=== PATIENT | male | born 1965 | race Caucasian/White ===

== ENCOUNTER 2021-12-18 19:34 | Inpatient (IN) | payer OTHER ==
[~2021-12-18] VITALS: Ht 167.6 cm; Wt 65.4 kg
[2021-12-18] MEDS ORDERED: MAGNESIUM HYDROXIDE SUSPENSION 30 ML UDCUP PO PRN (21:00)
[2021-12-18] MEDS ORDERED: ONDANSETRON HCL 4 MG/2 ML VIAL IVP PRN (21:00)
[2021-12-18 21:04] LABS: COVID AG,FIA SOURCE NASOPHARYNGEAL
[2021-12-18 22:13] LABS: BASOPHILS % (AUTO) 0.6 % (0.0-2.0); EOSINOPHILS % (AUTO) 0.9 % (1.0-6.0); HEMATOCRIT 36.3 % (41-53); HEMOGLOBIN 12.4 g/dL (13.5-17.5); LYMPHOCYTES # (AUTO) 1.9 K/uL (1.0-4.8); LYMPHOCYTES % (AUTO) 28.9 % (22.0-44.0); MEAN CORPUSCULAR HEMOGLOBIN 30.3 pg (26.0-34.0); MEAN CORPUSCULAR HGB CONC 34.3 G/dL (31.0-37.0); MEAN CORPUSCULAR VOLUME 88 fL (80-100); MONOCYTES # (AUTO) 0.7 K/uL (0.1-1.0); MONOCYTES % (AUTO) 10.8 % (2.0-9.0); NEUTROPHILS # (AUTO) 3.8 K/uL (1.8-7.7); NEUTROPHILS % (AUTO) 58.8 % (40.0-70.0); PLATELET COUNT (AUTO) 282 K/uL (150-450); RED BLOOD CELL COUNT(AUTO) 4.11 MIL/uL (4.50-5.90); RED CELL DISTRIBUTION WIDTH 12.8 % (11.5-14.5)
[2021-12-18 22:21] LABS: ANION GAP 1 mmol/L (8-16); CALCIUM, TOTAL 9.1 mg/dL (8.8-10.5); CARBON DIOXIDE 33 mmol/L (22-29); CHLORIDE 107 mmol/L (98-107); CREATININE 0.89 mg/dL (0.60-1.30); GLOMERULAR FILTR. RATE CALC > 60 mL/min (>60); GLUCOSE,RANDOM 99 mg/dL (70-110); POTASSIUM 4.4 mmol/L (3.5-5.1); SODIUM SERUM 141 mmol/L (136-145); UREA NITROGEN, BLOOD 24 mg/dL (7-18)
[2021-12-18 22:29] LABS: ALANINE AMINOTRANSFERASE 16 U/L (12-78); ALBUMIN 3.6 g/dL (3.4-5.0); ALKALINE PHOSPHATASE 82 U/L (46-116); ASPARTATE AMINOTRANSFERASE 17 U/L (15-37); BILIRUBIN,TOTAL 0.3 mg/dL (0.1-1.0); TOTAL PROTEIN, SERUM 6.7 g/dL (6.4-8.2)
[2021-12-18 22:48] VITALS: BP 143/79
[2021-12-18] MEDS: ACETAMINOPHEN 325 MG TABLET PO PRN (23:45)
[2021-12-19] VITALS (7 sets, daily range): BP systolic 92–123; BP diastolic 51–74
[2021-12-19] MEDS: HEPARIN SODIUM,PORCINE 5,000 UNITS/ML VIAL SQ SCH ×5 (00:27→23:06)
[2021-12-19] MEDS: FAMOTIDINE 20 MG TABLET PO SCH (07:47)
[2021-12-19 08:53] LABS: AMPHET/METH SCREEN,URINE NEGATIVE (NEGATIVE); BARBITURATE SCREEN, URINE NEGATIVE (NEGATIVE); BENZODIAZEPINES SCREEN,URINE NEGATIVE (NEGATIVE); CANNABINOID SCREEN,URINE NEGATIVE (NEGATIVE); COCAINE SCREEN,URINE NEGATIVE (NEGATIVE); METHADONE SCREEN, URINE NEGATIVE (NEGATIVE); OPIATE SCREEN,URINE NEGATIVE (NEGATIVE)
[2021-12-19 08:54] LABS: PHENCYCLIDINE SCREEN,URINE NEGATIVE (NEGATIVE)
[2021-12-19] MEDS: ACETAMINOPHEN 325 MG TABLET PO PRN (22:10)
[2021-12-20 04:14] VITALS: BP 104/61
[2021-12-20 07:31] VITALS: BP 118/78
[2021-12-20] MEDS: HEPARIN SODIUM,PORCINE 5,000 UNITS/ML VIAL SQ SCH ×3 (08:00→23:13)
[2021-12-20] MEDS: FAMOTIDINE 20 MG TABLET PO SCH (08:42)
[2021-12-20 11:27] VITALS: BP 112/68
[2021-12-20] MEDS: OLANZapine 5 MG RAPDIS TABLET PO SCH ×2 (12:41→19:55)
[2021-12-20] MEDS: DIVALPROEX SODIUM 500 MG DR TABLET PO SCH ×2 (12:41→19:55)
[2021-12-20 15:34] VITALS: BP 108/76
[2021-12-20 20:13] VITALS: BP 120/83
[2021-12-21 00:25] VITALS: BP 99/54
[2021-12-21 04:39] VITALS: BP 97/57
[2021-12-21] MEDS: HEPARIN SODIUM,PORCINE 5,000 UNITS/ML VIAL SQ SCH ×3 (08:00→23:43)
[2021-12-21] MEDS: OLANZapine 5 MG RAPDIS TABLET PO SCH ×2 (08:04→20:26)
[2021-12-21] MEDS: DIVALPROEX SODIUM 500 MG DR TABLET PO SCH ×2 (08:05→20:26)
[2021-12-21] MEDS: FAMOTIDINE 20 MG TABLET PO SCH (08:05)
[2021-12-21 08:27] VITALS: BP 114/69
[2021-12-21 13:34] VITALS: BP 97/65
[2021-12-21 16:20] VITALS: BP 115/77
[2021-12-21 20:52] VITALS: BP 111/67
[2021-12-22] MEDS ORDERED: MELATONIN 3 MG TABLET PO SCH
[2021-12-22 05:07] VITALS: BP 103/59
[2021-12-22 07:32] VITALS: BP 107/70
[2021-12-22] MEDS: DIVALPROEX SODIUM 500 MG DR TABLET PO SCH (07:52)
[2021-12-22] MEDS: HEPARIN SODIUM,PORCINE 5,000 UNITS/ML VIAL SQ SCH ×3 (07:52→16:00)
[2021-12-22] MEDS: FAMOTIDINE 20 MG TABLET PO SCH (07:52)
[2021-12-22] MEDS: OLANZapine 5 MG RAPDIS TABLET PO SCH ×2 (07:52→21:07)
[2021-12-22] MEDS: DIVALPROEX SODIUM 125 MG DR CAPSULE PO SCH ×2 (12:17→21:07)
[2021-12-22 15:31] VITALS: BP 104/72
[2021-12-22 20:02] VITALS: BP 115/63
[2021-12-22] MEDS ORDERED: MELATONIN 3 MG TABLET PO PRN (21:15)
[2021-12-23 04:51] VITALS: BP 110/66
[2021-12-23] MEDS: HEPARIN SODIUM,PORCINE 5,000 UNITS/ML VIAL SQ SCH ×5 (08:00→23:36)
[2021-12-23 08:08] VITALS: BP 96/65
[2021-12-23] MEDS: FAMOTIDINE 20 MG TABLET PO SCH ×2 (08:17→09:00)
[2021-12-23] MEDS: OLANZapine 5 MG RAPDIS TABLET PO SCH ×3 (08:18→21:00)
[2021-12-23] MEDS: DIVALPROEX SODIUM 125 MG DR CAPSULE PO SCH ×3 (08:19→21:00)
[2021-12-23 15:37] VITALS: BP 109/69
[2021-12-23] MEDS ORDERED: DiphenhydrAMINE HCL 50 MG/ML VIAL IM ONE (16:15)
[2021-12-23] MEDS ORDERED: LORazepam 2 MG/ML VIAL IM ONE (16:15)
[2021-12-23] MEDS ORDERED: HALOPERIDOL LACTATE 5 MG/ML VIAL IM ONE (16:15)
[2021-12-23 20:48] VITALS: BP 109/58
[2021-12-24 05:24] VITALS: BP 110/70
[2021-12-24] MEDS: HEPARIN SODIUM,PORCINE 5,000 UNITS/ML VIAL SQ SCH ×2 (08:00→16:00)
[2021-12-24] MEDS: DIVALPROEX SODIUM 125 MG DR CAPSULE PO SCH ×2 (08:11→21:09)
[2021-12-24] MEDS: FAMOTIDINE 20 MG TABLET PO SCH (08:14)
[2021-12-24] MEDS: OLANZapine 5 MG RAPDIS TABLET PO SCH ×2 (08:14→21:09)
[2021-12-24 08:34] VITALS: BP 107/64
[2021-12-24] MEDS ORDERED: DiphenhydrAMINE HCL 50 MG/ML VIAL IM ONE (16:15)
[2021-12-24] MEDS ORDERED: LORazepam 2 MG/ML VIAL IM ONE (16:15)
[2021-12-24] MEDS ORDERED: HALOPERIDOL LACTATE 5 MG/ML VIAL IM ONE (16:15)
[2021-12-24 20:00] VITALS: BP 119/73
[2021-12-25 06:00] VITALS: BP 101/59
[2021-12-25 08:00] VITALS: BP 98/61
[2021-12-25] MEDS: HEPARIN SODIUM,PORCINE 5,000 UNITS/ML VIAL SQ SCH ×4 (08:00→23:08)
[2021-12-25] MEDS: DIVALPROEX SODIUM 125 MG DR CAPSULE PO SCH ×2 (09:21→20:24)
[2021-12-25] MEDS: OLANZapine 5 MG RAPDIS TABLET PO SCH ×2 (09:21→20:24)
[2021-12-25] MEDS: FAMOTIDINE 20 MG TABLET PO SCH (09:21)
[2021-12-25 16:43] VITALS: BP 106/61
[2021-12-25 19:42] VITALS: BP 114/64
[2021-12-26 04:21] VITALS: BP 106/65
[2021-12-26 07:39] VITALS: BP 102/63
[2021-12-26] MEDS: HEPARIN SODIUM,PORCINE 5,000 UNITS/ML VIAL SQ SCH ×3 (08:00→23:36)
[2021-12-26] MEDS: FAMOTIDINE 20 MG TABLET PO SCH (08:14)
[2021-12-26] MEDS: OLANZapine 5 MG RAPDIS TABLET PO SCH ×2 (08:15→20:44)
[2021-12-26] MEDS: DIVALPROEX SODIUM 125 MG DR CAPSULE PO SCH ×2 (08:15→20:44)
[2021-12-26 12:55] LABS: BASOPHILS % (AUTO) 0.6 % (0.0-2.0); EOSINOPHILS % (AUTO) 1.8 % (1.0-6.0); HEMATOCRIT 38.5 % (41-53); HEMOGLOBIN 13.2 g/dL (13.5-17.5); LYMPHOCYTES # (AUTO) 1.7 K/uL (1.0-4.8); LYMPHOCYTES % (AUTO) 29.6 % (22.0-44.0); MEAN CORPUSCULAR HGB CONC 34.2 G/dL (31.0-37.0); MEAN CORPUSCULAR VOLUME 88 fL (80-100); MONOCYTES # (AUTO) 0.6 K/uL (0.1-1.0); MONOCYTES % (AUTO) 10.1 % (2.0-9.0); NEUTROPHILS # (AUTO) 3.4 K/uL (1.8-7.7); NEUTROPHILS % (AUTO) 57.9 % (40.0-70.0); PLATELET COUNT (AUTO) 290 K/uL (150-450); RED BLOOD CELL COUNT(AUTO) 4.39 MIL/uL (4.50-5.90); RED CELL DISTRIBUTION WIDTH 12.9 % (11.5-14.5)
[2021-12-26 13:06] LABS: ANION GAP 9 mmol/L (8-16); CALCIUM, TOTAL 8.9 mg/dL (8.8-10.5); CARBON DIOXIDE 31 mmol/L (22-29); CHLORIDE 102 mmol/L (98-107); CREATININE 0.96 mg/dL (0.60-1.30); GLUCOSE,RANDOM 113 mg/dL (70-110); POTASSIUM 4.3 mmol/L (3.5-5.1); SODIUM SERUM 142 mmol/L (136-145); UREA NITROGEN, BLOOD 20 mg/dL (7-18)
[2021-12-26 13:09] LABS: GLOMERULAR FILTR. RATE CALC > 60 mL/min (>60)
[2021-12-26 16:32] VITALS: BP 108/64
[2021-12-26 20:01] VITALS: BP 112/72
[2021-12-27 05:26] VITALS: BP 101/55
[2021-12-27] MEDS: LEVOTHYROXINE SODIUM 50 MCG TABLET PO SCH (06:58)
[2021-12-27 08:00] VITALS: BP 112/57
[2021-12-27] MEDS: HEPARIN SODIUM,PORCINE 5,000 UNITS/ML VIAL SQ SCH ×2 (08:00→16:00)
[2021-12-27] MEDS: DIVALPROEX SODIUM 125 MG DR CAPSULE PO SCH ×2 (09:40→21:12)
[2021-12-27] MEDS: FAMOTIDINE 20 MG TABLET PO SCH (09:40)
[2021-12-27] MEDS: OLANZapine 5 MG RAPDIS TABLET PO SCH ×2 (09:40→21:12)
[2021-12-27 16:14] VITALS: BP 99/60
[2021-12-27 21:04] VITALS: BP 105/65
[2021-12-28 05:36] VITALS: BP 100/53
[2021-12-28] MEDS: LEVOTHYROXINE SODIUM 50 MCG TABLET PO SCH (06:16)
[2021-12-28 07:49] VITALS: BP 94/56
[2021-12-28] MEDS: HEPARIN SODIUM,PORCINE 5,000 UNITS/ML VIAL SQ SCH ×3 (08:00→16:00)
[2021-12-28] MEDS: FAMOTIDINE 20 MG TABLET PO SCH (08:40)
[2021-12-28] MEDS: OLANZapine 5 MG RAPDIS TABLET PO SCH ×2 (08:40→20:32)
[2021-12-28] MEDS: DIVALPROEX SODIUM 125 MG DR CAPSULE PO SCH ×2 (08:41→20:32)
[2021-12-28 16:21] VITALS: BP 104/76
[2021-12-28 19:30] VITALS: BP 104/59
[2021-12-29 04:05] VITALS: BP 95/68
[2021-12-29] MEDS: LEVOTHYROXINE SODIUM 50 MCG TABLET PO SCH (06:14)
[2021-12-29 07:57] VITALS: BP 96/56
[2021-12-29] MEDS: HEPARIN SODIUM,PORCINE 5,000 UNITS/ML VIAL SQ SCH ×3 (08:00→16:00)
[2021-12-29] MEDS: DIVALPROEX SODIUM 125 MG DR CAPSULE PO SCH ×2 (08:51→19:41)
[2021-12-29] MEDS: FAMOTIDINE 20 MG TABLET PO SCH (08:51)
[2021-12-29] MEDS ORDERED: OLANZapine 10 MG RAPDIS TABLET PO SCH (09:00)
[2021-12-29] MEDS: OLANZapine 10 MG RAPDIS TABLET PO SCH ×2 (09:31→19:41)
[2021-12-29 15:38] VITALS: BP 105/58
[2021-12-29 19:46] VITALS: BP 104/62
[2021-12-30 04:38] VITALS: BP 109/58
[2021-12-30] MEDS: HEPARIN SODIUM,PORCINE 5,000 UNITS/ML VIAL SQ SCH ×4 (08:00→23:51)
[2021-12-30 08:09] VITALS: BP 94/57
[2021-12-30] MEDS: OLANZapine 10 MG RAPDIS TABLET PO SCH ×2 (08:15→19:49)
[2021-12-30] MEDS: FAMOTIDINE 20 MG TABLET PO SCH (08:15)
[2021-12-30] MEDS: LEVOTHYROXINE SODIUM 50 MCG TABLET PO SCH (08:15)
[2021-12-30] MEDS: DIVALPROEX SODIUM 125 MG DR CAPSULE PO SCH ×2 (08:18→19:49)
[2021-12-30 17:17] VITALS: BP 95/52
[2021-12-30 20:00] VITALS: BP 105/69
[2021-12-31 04:20] VITALS: BP 102/64
[2021-12-31 07:41] VITALS: BP 103/60
[2021-12-31] MEDS: OLANZapine 10 MG RAPDIS TABLET PO SCH ×2 (08:07→20:44)
[2021-12-31] MEDS: LEVOTHYROXINE SODIUM 50 MCG TABLET PO SCH (08:07)
[2021-12-31] MEDS: FAMOTIDINE 20 MG TABLET PO SCH (08:07)
[2021-12-31] MEDS: DIVALPROEX SODIUM 125 MG DR CAPSULE PO SCH ×2 (08:07→20:44)
[2021-12-31] MEDS: HEPARIN SODIUM,PORCINE 5,000 UNITS/ML VIAL SQ SCH ×3 (08:12→23:21)
[2021-12-31 15:48] VITALS: BP 106/68
[2021-12-31 20:35] VITALS: BP 115/68
[2021-12-31] MEDS: ACETAMINOPHEN 325 MG TABLET PO PRN (20:45)
[2022-01-01 05:05] VITALS: BP_SYST 115; BP_SYST 120; BP_DIAS 68; BP_DIAS 76
[2022-01-01] MEDS: LEVOTHYROXINE SODIUM 50 MCG TABLET PO SCH (05:56)
[2022-01-01] MEDS: DIVALPROEX SODIUM 125 MG DR CAPSULE PO SCH ×2 (09:57→20:16)
[2022-01-01] MEDS: FAMOTIDINE 20 MG TABLET PO SCH (09:57)
[2022-01-01] MEDS: OLANZapine 10 MG RAPDIS TABLET PO SCH ×2 (09:58→20:16)
[2022-01-01] MEDS: HEPARIN SODIUM,PORCINE 5,000 UNITS/ML VIAL SQ SCH ×3 (09:58→23:52)
[2022-01-01 16:08] VITALS: BP 116/52
[2022-01-01 20:30] VITALS: BP 108/58
[2022-01-02 05:17] VITALS: BP 96/56
[2022-01-02] MEDS: LEVOTHYROXINE SODIUM 50 MCG TABLET PO SCH (05:32)
[2022-01-02 08:34] VITALS: BP 93/55
[2022-01-02] MEDS: FAMOTIDINE 20 MG TABLET PO SCH (08:39)
[2022-01-02] MEDS: HEPARIN SODIUM,PORCINE 5,000 UNITS/ML VIAL SQ SCH (08:39)
[2022-01-02] MEDS: OLANZapine 10 MG RAPDIS TABLET PO SCH (08:39)
[2022-01-02] MEDS: DIVALPROEX SODIUM 125 MG DR CAPSULE PO SCH (08:39)
[2022-01-02] MEDS ORDERED: DIVA125C20 PO (09:28)
[2022-01-02] MEDS ORDERED: FAMO20 PO (09:29)
[2022-01-02] MEDS ORDERED: OLAN10TA74 PO (09:29)
== END 2022-01-02 10:30 | DRG 885 ==
LOC: EMS 19:40 → 5S 21:03 → 6S 12-21 13:40
PROVIDERS: ADMIT Internal Medicine; ATTEND Internal Medicine
DX: F25.0 Schizoaffective disorder, bipolar type (principal); F41.9 Anxiety disorder, unspecified; Z91.19 Patient's noncompliance with other medical treatment and regimen
CPT/HCPCS: 80048; 80053; 85025; 99285; G0480; J1200; J1630; J1644; J2060